=== PATIENT | male | born 1965 | race Caucasian/White ===

== ENCOUNTER → 2023-01-13 | Outpatient (CLI) | payer MEDICARE, OTHER ==
--- NOTE | 2023-01-13 09:46 | CT ---
EXAMINATION TYPE: CT brain wo con DATE OF EXAM: 01/13/2023 COMPARISON: none HISTORY: pounding headache, h/o traumatic brain, injury CT DLP: [address] of the brain was performed. There is extensive left temporal parietal craniotomy with skin flap in place. There is ex vacuo dilat ation of the left lateral ventricle as well as frontal horn and left ventricular atrium with encephal omalacia seen of the adjacent left frontal and left temporal parietal lobes. There is mild enlargemen t of the right lateral ventricle. There is no evidence of midline shift or intracranial hemorrhage. R emote white matter insults noted. No evidence for sulcal effacement. IMPRESSION: 1. Extensive postoperative changes as noted above left temporal parietal craniotomy. Encephalomalacia left frontal and left temporal parietal lobes with ex vacuo dilatation as discussed. No acute intrac ranial process seen at this time.
== END | disposition home or self-care (01) ==
LOC: RADCTMAIN 09:18
PROVIDERS: ATTEND Family Medicine
DX: Z00.01 Encounter for general adult medical examination with abnormal findings (principal); G93.89 Other specified disorders of brain; E11.9 Type 2 diabetes mellitus without complications; I51.7 Cardiomegaly; R51.9 Headache, unspecified; R19.5 Other fecal abnormalities; Z95.3 Presence of xenogenic heart valve; Z79.4 Long term (current) use of insulin
CPT/HCPCS: 70450

== ENCOUNTER 2024-06-20 10:01 | Observation (INO) | payer MEDICARE, OTHER ==
[2024-06-20 10:20] LABS: Glucose,Whole Blood 72 mg/dL (70-110)
--- NOTE | 2024-06-20 10:21 | ED ---
General Adult HPI - General Chief complaint: Seizure Stated complaint: seizure Time Seen by Provider: 06/20/24 10:06 Source: patient, RN notes reviewed Mode of arrival: ambulatory Limitations: no limitations - History of Present Illness Initial comments: Patient is a 59-year-old male presents emergency department with concerns for seizure. Patient is somewhat a poor historian and has history of previous head injury. Patient had reported seizure activity lasting 1 minute. Patient reportedly returned to baseline following this. Patient has no complaints at this time. No history of previous seizures. Head injury is a distant injury and has chronic right-sided weakness which is also reported as unchanged - Related Data Home Medications Medication Instructions Recorded Confirmed Ascorbic Acid [Vitamin C] 1,000 mg PO DAILY@0800 06/20/24 06/20/24 Cetirizine HCl [Zyrtec] 10 mg PO DAILY@1700 06/20/24 06/20/24 Cholecalciferol [Vitamin D3 (125 125 mcg PO DAILY@0800 06/20/24 06/20/24 Mcg = 5000 Iu)] Cider Vinegar [Apple Cider Vinegar] 600 mg PO BID@1130,1630 06/20/24 06/20/24 Cyanocobalamin (Vitamin B-12) 1,000 mcg PO DAILY@0800 06/20/24 06/20/24 [Vitamin B-12] Insulin Glargine,Hum.rec.anlog 15 units SQ BID@08,20 06/20/24 06/20/24 [Toujeo Solostar] Insulin Lispro-Aabc [Lyumjev See Protocol SQ AC-TID 06/20/24 06/20/24 Hao U-100] Ipratropium [place] 0.06%Nasal 2 spray EA NOSTRIL 06/20/24 06/20/24 [Atrovent Nasal 0.06%] TID@0800,1400,2000 Levothyroxine Sodium [Synthroid] 25 mcg PO DAILY@0800 06/20/24 06/20/24 Propranolol [Inderal] 20 mg PO TID@08,12,17 06/20/24 06/20/24 Rosuvastatin [Crestor] 10 mg PO DAILY@0800 06/20/24 06/20/24 Semaglutide [Ozempic] 0.5 mg SQ FR 06/20/24 06/20/24 Sertraline [Zoloft] 50 mg PO DAILY@0800 06/20/24 06/20/24 Zinc Gluconate [Zinc] 50 mg PO DAILY@0800 06/20/24 06/20/24 metFORMIN HCL ER [Glucophage XR] 1,000 mg PO DAILY@1700 06/20/24 06/20/24 Allergies Allergy/AdvReac Type Severity Reaction Status Date / Time No Known Allergies Allergy Verified 06/20/24 10:35 Review of Systems ROS Statement: Those systems with pertinent positive or pertinent negative responses have been documented in the HPI. ROS Other: All systems not noted in ROS Statement are negative. Constitutional: Denies: fever Eyes: Denies: eye pain ENT: Denies: ear pain Respiratory: Denies: cough Cardiovascular: Denies: chest pain Endocrine: Denies: fatigue Gastrointestinal: Denies: abdominal pain Neurological: Reports: as per HPI. Denies: headache, weakness Past Medical History Past Medical History: CVA/TIA, Diabetes Mellitus, Hyperlipidemia, Hypertension Additional Past Medical History / Comment(s): TBI, CKD , R Paralysis History of Any Multi-Drug Resistant Organisms: None Reported Past Surgical History: Unable to Obtain Past Psychological History: Anxiety Smoking Status: Former smoker Past Alcohol Use History: None Reported Past Drug Use History: None Reported General Exam Limitations: no limitations General appearance: alert Head exam: Present: other (Chronic appearing deformity) Eye exam: Present: normal appearance, PERRL, EOMI Neck exam: Present: normal inspection. Absent: tenderness Respiratory exam: Present: normal lung sounds bilaterally Cardiovascular Exam: Present: regular rate, normal rhythm GI/Abdominal exam: Present: soft. Absent: tenderness Extremities exam: Present: other (Right arm partially contracted) Back exam: Present: normal inspection. Absent: tenderness Neurological exam: Present: alert Expanded Neurological exam: Present: protecting the airway Patient oriented to: Present: person. Absent: place, time Motor strength exam: RUE: 3, LUE: 5, RLE: 5, LLE: 5 Eye Response: (4) open spontaneously Motor Response: (6) obeys commands Verbal Response: (4) confused conversation Psychiatric exam: Present: normal affect, normal mood Skin exam: Present: normal color Course Vital Signs 06/20/24 06/20/24 06/20/24 10:04 10:38 11:00 Temperature 97.8 F Pulse Rate 89 84 86 Respiratory 20 18 20 Rate Blood Pressure 156/104 140/108 145/96 O2 Sat by Pulse 96 97 96 Oximetry EKG Findings - EKG Results: EKG: interpreted by SHANNOND, sinus rhythm, normal axis, normal QRS, normal ST/T Medical Decision Making - Medical Decision Making Was pt. sent in by a medical professional or institution (, PA, COMMERCIAL REAL ESTATE SALES MANAGER, urgent care, hospital, or longterm...) When possible be specific @ -Patient was sent from an [facility] home Did you speak to anyone other than the patient for history (EMS, parent, family, police, friend...)? What history was obtained from this source @ -EMS helps provide history of the incident as patient does not recall Did you review nursing and triage notes (agree or disagree)? Why? @ -I reviewed and agree with nursing and triage notes Were old charts reviewed (outside hosp., previous admission, EMS record, old EKG, old radiological studies, urgent care reports/EKG's, longterm records)? Report findings @ -No old charts were reviewed Differential Diagnosis (chest pain, altered mental status, abdominal pain women, abdominal pain men, vaginal bleeding, weakness, fever, dyspnea, syncope, headache, dizziness, GI bleed, back pain, seizure, CVA, palpatations, mental health, musculoskeletal)? @ -Differential Seizure: Recurrent seizure disorder, febrile seizure, alcohol withdrawal, stimulants, meningitis, encephalitis, intercranial hemorrhage, intracranial tumor, stroke, eclampsia, thyrotoxicosis, hypocalcemia, hyponatremia, hypernatremia, hypomagnesemia, psychogenic, this is not meant to be an all-inclusive list. EKG interpreted by me (3pts min.). @ -As above X-rays interpreted by me (1pt min.). @ -None done CT interpreted by me (1pt min.). @ -CT scan of the brain shows no acute abnormality. Previous craniectomy and encephalomalacia U/S interpreted by me (1pt. min.). @ -None done What testing was considered but not performed or refused? (CT, X-rays, U/S, labs)? Why? @ -None What meds were considered but not given or refused? Why? @ -None Did you discuss the management of the patient with other professionals (professionals i.e. , PA, COMMERCIAL REAL ESTATE SALES MANAGER, lab, RT, psych nurse, social work assistant, laborer rags, teacher, environmental technical officer, skilled nursing case manager)? Give summary @ -Case was discussed with Dr. Preciado who will admit covering Dr. Arechiga Was smoking cessation discussed for >3mins.? @ -No Was critical care preformed (if so, how long)? @ -No Were there social determinants of health that impacted care today? How? (Homelessness, low income, unemployed, alcoholism, drug addiction, t ransportation, low edu. Level, literacy, decrease access to med. care, shelter, rehab)? @ -No Was there de-escalation of care discussed even if they declined (Discuss DNR or withdrawal of care, Hospice)? DNR status @ -No What co-morbidities impacted this encounter? (DM, HTN, Smoking, COPD, CAD, Cance r, CVA, ARF, Chemo, Hep., AIDS, mental health diagnosis, sleep apnea, morbid obesity)? @ -History of head injury Was patient admitted / discharged? Hospital course, mention meds given and route, prescriptions, significant lab abnormalities, going to OR and other pertinent info. @ -Patient presents with new onset seizure. No new focal deficits on exam. Patient reevaluated and symptom-free. Patient will admit for new onset seizure with neuroevaluation, admission orders written. Undiagnosed new problem with uncertain prognosis? @ -No Drug Therapy requiring intensive monitoring for toxicity (Heparin, Nitro, Insulin, Cardizem)? @ -No Were any procedures done? @ -No Diagnosis/symptom? @ -New onset seizure Acute, or Chronic, or Acute on Chronic? @ -Acute Uncomplicated (without systemic symptoms) or Complicated (systemic symptoms)? @ -Complicated with previous head injury Side effects of treatment? @ -No Exacerbation, Progression, or Severe Exacerbation? @ -No Poses a threat to life or bodily function? How? (Chest pain, [place], [place], pneumonia, PE, COPD, DKA, ARF, appy, cholecystitis, CVA, Diverticulitis, Homicidal, Suicidal, threat to staff... and all critical care pts) @ -Threat to neurological function - Lab Data Result diagrams: 06/20/24 10:21 06/20/24 10:21 Lab Results 06/20/24 06/20/24 06/20/24 Range/Units 10:18 10:21 10:21 WBC 6.2 (3.8-10.6) k/uL RBC 4.74 (4.30-5.90) m/uL Hgb 12.7 L (13.0-17.5) gm/dL Hct 40.5 (39.0-53.0) % MCV 85.5 (80.0-100.0) fL MCH 26.8 (25.0-35.0) pg MCHC 31.3 (31.0-37.0) g/dL RDW 13.6 (11.5-15.5) % Plt Count 214 (150-450) k/uL MPV 8.8 Neutrophils % 58 % Lymphocytes % 17 % Monocytes % 9 % Eosinophils % 12 % Basophils % 1 % Neutrophils # 3.6 (1.3-7.7) k/uL Lymphocytes # 1.0 (1.0-4.8) k/uL Monocytes # 0.6 (0-1.0) k/uL Eosinophils # 0.8 H (0-0.7) k/uL Basophils # 0.1 (0-0.2) k/uL Sodium 140 (137-145) mmol/L Potassium 4.4 (3.5-5.1) mmol/L Chloride 105 (98-107) mmol/L Carbon Dioxide 31 H (22-30) mmol/L Anion Gap 4 mmol/L BUN 17 (9-20) mg/dL Creatinine 1.60 H (0.66-1.25) mg/dL Est GFR (CKD-EPI)AfAm 54 (>60 ml/min/1.73 sqM) Est GFR (CKD-EPI)NonAf 47 (>60 ml/min/1.73 sqM) Glucose 67 L (74-99) mg/dL POC Glucose (mg/dL) 72 (70-110) mg/dL POC Glu Optical Glass Inspector ID Letty Beck Calcium 9.2 (8.4-10.2) mg/dL Magnesium 1.9 (1.6-2.3) mg/dL Total Bilirubin 0.5 (0.2-1.3) mg/dL AST 30 (17-59) U/L ALT 34 (4-49) U/L Alkaline Phosphatase 87 (38-126) U/L Total Protein 7.0 (6.3-8.2) g/dL Albumin 4.2 (3.5-5.0) g/dL Serum Alcohol <10 mg/dL 06/20/24 Range/Units 11:26 WBC (3.8-10.6) k/uL RBC (4.30-5.90) m/uL Hgb (13.0-17.5) gm/dL Hct (39.0-53.0) % MCV (80.0-100.0) fL MCH (25.0-35.0) pg MCHC (31.0-37.0) g/dL RDW (11.5-15.5) % Plt Count (150-450) k/uL MPV Neutrophils % % Lymphocytes % % Monocytes % % Eosinophils % % Basophils % % Neutrophils # (1.3-7.7) k/uL Lymphocytes # (1.0-4.8) k/uL Monocytes # (0-1.0) k/uL Eosinophils # (0-0.7) k/uL Basophils # (0-0.2) k/uL Sodium (137-145) mmol/L Potassium (3.5-5.1) mmol/L Chloride (98-107) mmol/L Carbon Dioxide (22-30) mmol/L Anion Gap mmol/L BUN (9-20) mg/dL Creatinine (0.66-1.25) mg/dL Est GFR (CKD-EPI)AfAm (>60 ml/min/1.73 sqM) Est GFR (CKD-EPI)NonAf (>60 ml/min/1.73 sqM) Glucose (74-99) mg/dL POC Glucose (mg/dL) 126 H (70-110) mg/dL POC Glu Optical Glass Inspector ID Letty Beck Calcium (8.4-10.2) mg/dL Magnesium (1.6-2.3) mg/dL Total Bilirubin (0.2-1.3) mg/dL AST (17-59) U/L ALT (4-49) U/L Alkaline Phosphatase (38-126) U/L Total Protein (6.3-8.2) g/dL Albumin (3.5-5.0) g/dL Serum Alcohol mg/dL Disposition Clinical Impression: New onset seizure Disposition: ADMITTED IP TO THIS HOSP Instructions (If sedation given, give patient instructions): Seizure/Epilepsy Discharge Instructions & Follow-Up Is patient prescribed a controlled substance at d/c from ED?: No Referrals: Mele Navarro MD [Primary Care Provider] - 1-2 days Time of Disposition: 12:12
[2024-06-20] MEDS: levETIRAcetam IV 500 MG/5 ML VIAL IVP STA (10:28)
[2024-06-20 10:42] LABS: Basophils # (A) 0.1 k/uL (0-0.2); Basophils % (A) 1 %; Eosinophils # (A) 0.8 k/uL (0-0.7); Eosinophils % (A) 12 %; HCT 40.5 % (39.0-53.0); HGB 12.7 gm/dL (13.0-17.5); Lymphocytes % (A) 17 %; MCH 26.8 pg (25.0-35.0); MCHC 31.3 g/dL (31.0-37.0); MCV 85.5 fL (80.0-100.0); Mean Platelet Volume 8.8; Monocytes # (A) 0.6 k/uL (0-1.0); Monocytes % (A) 9 %; Neutrophils # (A) 3.6 k/uL (1.3-7.7); Neutrophils % (A) 58 %; Platelet Count 214 k/uL (150-450); RBC 4.74 m/uL (4.30-5.90); RDW 13.6 % (11.5-15.5); WBC 6.2 k/uL (3.8-10.6)
[2024-06-20 10:57] LABS: ALT 34 U/L (4-49); AST 30 U/L (17-59); African American GFR (CKD) 54 (>60 ml/min/1.73 sqM); Albumin 4.2 g/dL (3.5-5.0); Alcohol <10 mg/dL; Alkaline Phosphatase 87 U/L (38-126); Anion Gap 4 mmol/L; Blood Urea Nitrogen 17 mg/dL (9-20); Calcium 9.2 mg/dL (8.4-10.2); Carbon Dioxide 31 mmol/L (22-30); Chloride 105 mmol/L (98-107); Glucose 67 mg/dL (74-99); Magnesium 1.9 mg/dL (1.6-2.3); Non-African American GFR(CKD) 47 (>60 ml/min/1.73 sqM); Potassium 4.4 mmol/L (3.5-5.1); Sodium 140 mmol/L (137-145); Total Bilirubin 0.5 mg/dL (0.2-1.3)
--- NOTE | 2024-06-20 11:00 | CT ---
EXAMINATION TYPE: CT brain wo con DATE OF EXAM: 06/20/2024 COMPARISON: 01/13/2023 HISTORY: 59-year-old male Seizure activity TECHNIQUE: Examination was done in axial plane without intravenous contrast. Coronal and sagittal r econstructions performed. CT DLP: 1095.5 mGycm Automated exposure control for dose reduction was used. FINDINGS: There is a large craniectomy along the left lateral convexity with extensive underlying encephalomala khloe throughout the left cerebrum. Mild ventriculomegaly is unchanged. No midline shift or herniation or effacement of basal subarachnoi d cisterns. Subjective catheters along the right scalp can be correlated clinically. There is no evidence of acute intracranial hemorrhage, acute ischemic changes, mass, mass-effect, or extra-axial fluid collection. There is no effacement of cerebral sulci or basal subarachnoid cister ns. There is no midline shift. Leon-white matter distinction is preserved. Trace mucosal thickening ethmoid air cells. Otherwise, paranasal sinuses and mastoid air cells are we ll pneumatized. Cerumen in bilateral external auditory canals. Orbits and globes appear intact. IMPRESSION: 1. Large craniectomy along the left side of the head redemonstrated with extensive underlying encepha lomalacia throughout the left side of the brain. Overall appearance is unchanged. 2. Mild bilateral hydrocephalus/ventriculomegaly also remains unchanged. No acute process seen. 4. Some type of catheters redemonstrated within the right scalp. Clinically correlate. [facility], , 06/20/2024 10:57 AM
[2024-06-20 11:28] LABS: Glucose,Whole Blood 126 mg/dL (70-110)
[2024-06-20] MEDS ORDERED: ACETAMINOPHEN TAB 325 MG TAB PO PRN (12:12)
[2024-06-20] MEDS ORDERED: NALOXONE 0.4 MG/ML 1 ML VIAL IV PRN (12:12)
[2024-06-20] MEDS ORDERED: LORazepam 2 MG/ML INJ IV PRN (12:14)
[2024-06-20] MEDS: IPRATROPIUM BROMIDE 0.06% NASAL SPRAY (15 ML) EA NOSTRIL SCH (14:47)
[2024-06-20] MEDS ORDERED: DEXTROSE 50% SYRINGE 50 ML IVP PRN ×2 (15:05)
--- NOTE | 2024-06-20 15:05 | P.HPIM ---
History of Present Illness H&P Date: 06/20/24 Patient is a 59-year-old male with a history of TBI 15 years ago, no prior seizure disorder presenting with seizure. Patient is extremely dysarthric, unable to provide meaningful history. He claims that he is normally able to ambulate on his own, lives by himself, but his family witnessed the seizure and called EMS. He claims that he is not able to move his right upper extremity due to prior TBI, but denies any new symptoms. He denies any chest pain, shortness of breath, abdominal pain, urinary or bowel complaints. He claims that he is a former smoker, occasionally drinks alcohol, denies any illicit drug use. In the ED, temperature was 97.8, pulse 89, respiratory 20, blood pressure 156/104, saturating at 96% on room air. WBC 6.2, hemoglobin 12.7, bicarb 31, creatinine 1.6 unknown baseline, glucose 67, magnesium 1.9, alcohol negative. Head CT shows large craniectomy, extensive underlying encephalomalacia on the left side, mild bilateral hydrocephalus, unchanged, nothing acute. EKG independently interpreted, shows normal sinus rhythm. Patient being admitted for new breakthrough seizure with history of TBI. Neurology consulted. Pertinent positives and negatives as discussed in HPI, a complete review of systems was performed and all other systems are negative. Patient seen and examined at bedside. Vital signs reviewed General: nontoxic, no distress, appears at stated age Derm: warm, dry Head: Left cranial surgery Eyes: EOMI, no lid lag, anicteric sclera, pupils equal round reactive to light ENT: Nose and ears atraumatic Neck: No thyromegaly, supple Mouth: no lip lesion, mucus membranes moist Cardiovascular: S1S2 reg, no murmur, no edema Lungs: clear to auscultation bilateral, no rhonchi, no rales, no wheeze, no accessory muscle use Abdominal: soft, nontender to palpation, no guarding, no appreciable organomegaly Ext: Right upper extremity paralysis Neuro: CN II-XII grossly intact Psych: Alert, oriented, appropriate affect Assessment/Plan: Active: Breakthrough seizure History of TBI -Seizure precautions, neurochecks -Continue Keppra oral 500 every 12 hours -IV Ativan 1 mg every 4 hours as needed for seizures, monitor for sedation -Neurology consulted, pending recommendations Type 2 diabetes -Sliding scale insulin ACH S, monitor for hypoglycemia -Continue 15 units glargine twice daily -Hold metformin CKD? -Repeat BMP tomorrow Chronic: Dyslipidemia Hypothyroidism Hypertension Depression The patient is admitted with an anticipated less than 2 midnight stay as observation status for evaluation of seizure. Surrogate decision-maker: Spouse CODE STATUS: Full code DVT prophylaxis: Subcu heparin Anticipated discharge date: Pending clinical course Anticipated discharge place: Pending clinical course A total of 55 minutes was spent on the care of this complex patient more than 50% of the time was spent in counseling and care coordination. Past Medical History Past Medical History: CVA/TIA, Diabetes Mellitus, Hyperlipidemia, Hypertension Additional Past Medical History / Comment(s): TBI, CKD , R Paralysis History of Any Multi-Drug Resistant Organisms: None Reported Past Surgical History: Unable to Obtain Past Psychological History: Anxiety Smoking Status: Former smoker Past Alcohol Use History: None Reported Past Drug Use History: None Reported Medications and Allergies Home Medications Medication Instructions Recorded Confirmed Type Ascorbic Acid [Vitamin C] 1,000 mg PO DAILY@0800 06/20/24 06/20/24 History Cetirizine HCl [Zyrtec] 10 mg PO DAILY@1700 06/20/24 06/20/24 History Cholecalciferol [Vitamin D3 (125 125 mcg PO DAILY@0800 06/20/24 06/20/24 History Mcg = 5000 Iu)] Cider Vinegar [Apple Cider Vinegar] 600 mg PO BID@1130,1630 06/20/24 06/20/24 History Cyanocobalamin (Vitamin B-12) 1,000 mcg PO DAILY@0800 06/20/24 06/20/24 History [Vitamin B-12] Insulin Glargine,Hum.rec.anlog 15 units SQ BID@08,20 06/20/24 06/20/24 History [Toujacklyn Solostar] Insulin Lispro-Aabc [Lyumjev See Protocol SQ AC-TID 06/20/24 06/20/24 History Kwikpen U-100] Ipratropium [place] 0.06%Nasal 2 spray EA NOSTRIL 06/20/24 06/20/24 History [Atrovent Nasal 0.06%] TID@0800,1400,2000 Levothyroxine Sodium [Synthroid] 25 mcg PO DAILY@0800 06/20/24 06/20/24 History Propranolol [Inderal] 20 mg PO TID@08,12,17 06/20/24 06/20/24 History Rosuvastatin [Crestor] 10 mg PO DAILY@0800 06/20/24 06/20/24 History Semaglutide [Ozempic] 0.5 mg SQ FR 06/20/24 06/20/24 History Sertraline [Zoloft] 50 mg PO DAILY@0800 06/20/24 06/20/24 History Zinc Gluconate [Zinc] 50 mg PO DAILY@0800 06/20/24 06/20/24 History metFORMIN HCL ER [Glucophage XR] 1,000 mg PO DAILY@1700 06/20/24 06/20/24 History Allergies Allergy/AdvReac Type Severity Reaction Status Date / Time No Known Allergies Allergy Verified 06/20/24 10:35 Physical Exam Vitals: Vital Signs Temp Pulse Resp BP Pulse Ox 06/20/24 14:00 75 18 133/96 96 06/20/24 13:00 80 18 144/87 96 06/20/24 12:15 85 18 121/90 94 L 06/20/24 11:00 86 20 145/96 96 06/20/24 10:38 84 18 140/108 97 06/20/24 10:04 97.8 F 89 20 156/104 96 Intake and Output 06/20/24 06/20/24 06/20/24 06:59 14:59 22:59 Other: Weight 68.039 kg Results CBC & Chem 7: 06/20/24 10:21 06/20/24 10:21 Labs: Abnormal Lab Results - Last 24 Hours (Table) 06/20/24 06/20/24 06/20/24 Range/Units 10:21 10:21 11:26 Hgb 12.7 L (13.0-17.5) gm/dL Eosinophils # 0.8 H (0-0.7) k/uL Carbon Dioxide 31 H (22-30) mmol/L Creatinine 1.60 H (0.66-1.25) mg/dL Glucose 67 L (74-99) mg/dL POC Glucose (mg/dL) 126 H (70-110) mg/dL
[2024-06-20] MEDS ORDERED: NON FORMULARY DRUG (Cider Vinegar [Apple Cider Vinegar] 300 MG Tablet) PO SCH (16:30)
[2024-06-20] MEDS ORDERED: metFORMIN 500 MG TAB PO SCH (17:00)
[2024-06-20 17:13] LABS: Glucose,Whole Blood 111 mg/dL (70-110)
[2024-06-20] MEDS: HEPARIN SODIUM,PORCINE 5,000 UNIT/ML 1 ML VIAL SQ SCH (17:13)
[2024-06-20] MEDS: LORATADINE 10 MG TAB PO SCH (17:13)
[2024-06-20] MEDS: INSULIN ASPART (NovoLOG) 100 UNIT/ML VIAL SQ SCH (17:13)
[2024-06-20] MEDS: PROPRANOLOL 20 MG TAB PO SCH (17:24)
[2024-06-20 20:04] LABS: Glucose,Whole Blood 208 mg/dL (70-110)
[2024-06-20] MEDS: levETIRAcetam 500 MG TAB PO SCH (20:10)
[2024-06-20] MEDS: INSULIN DETEMIR (LEVEMIR) 100 UNIT/ML SYR SQ SCH (20:10)
[2024-06-21 07:02] LABS: Basophils # (A) 0.1 k/uL (0-0.2); Basophils % (A) 1 %; Eosinophils # (A) 0.2 k/uL (0-0.7); Eosinophils % (A) 3 %; HCT 41.1 % (39.0-53.0); HGB 12.8 gm/dL (13.0-17.5); Lymphocytes # (A) 0.8 k/uL (1.0-4.8); Lymphocytes % (A) 11 %; MCH 26.8 pg (25.0-35.0); MCV 86.2 fL (80.0-100.0); Mean Platelet Volume 8.5; Monocytes # (A) 0.5 k/uL (0-1.0); Monocytes % (A) 6 %; Neutrophils # (A) 6.1 k/uL (1.3-7.7); Neutrophils % (A) 78 %; Platelet Count 215 k/uL (150-450); RBC 4.77 m/uL (4.30-5.90); RDW 13.6 % (11.5-15.5); WBC 7.8 k/uL (3.8-10.6)
[2024-06-21 07:22] LABS: African American GFR (CKD) 62 (>60 ml/min/1.73 sqM); Anion Gap 8 mmol/L; Blood Urea Nitrogen 18 mg/dL (9-20); Calcium 9.2 mg/dL (8.4-10.2); Carbon Dioxide 28 mmol/L (22-30); Chloride 103 mmol/L (98-107); Non-African American GFR(CKD) 54 (>60 ml/min/1.73 sqM); Potassium 4.2 mmol/L (3.5-5.1); Sodium 139 mmol/L (137-145)
[2024-06-21 07:26] LABS: Glucose 39 mg/dL (74-99)
[2024-06-21 07:43] LABS: Glucose,Whole Blood 59 mg/dL (70-110)
[2024-06-21] MEDS: ZINC SULFATE 220 MG CAP PO SCH (07:53)
[2024-06-21] MEDS: SERTRALINE 50 MG TAB PO SCH (07:54)
[2024-06-21] MEDS: ATORVASTATIN 20 MG TAB PO SCH (07:54)
[2024-06-21] MEDS: ASCORBIC ACID 500 MG TAB PO SCH (07:54)
[2024-06-21] MEDS: LEVOTHYROXINE 25 MCG TAB PO SCH (07:55)
[2024-06-21] MEDS: CYANOCOBALAMIN 500 MCG TAB PO SCH (07:55)
[2024-06-21] MEDS: CHOLECALCIFEROL 125 MCG (5000 IU) TABLET PO SCH (07:56)
[2024-06-21 12:24] LABS: Glucose,Whole Blood 260 mg/dL (70-110)
--- NOTE | 2024-06-21 14:36 | P.PN ---
Subjective Progress Note Date: 06/21/24 Hospital Course: 59-year-old male with a history of TBI 15 years ago, no prior seizure disorder presenting with seizure. In the ED, temperature was 97.8, pulse 89, respiratory 20, blood pressure 156/104, saturating at 96% on room air. WBC 6.2, hemoglobin 12.7, bicarb 31, creatinine 1.6 unknown baseline, glucose 67, magnesium 1.9, alcohol negative. Head CT shows large craniectomy, extensive underlying encephalomalacia on the left side, mild bilateral hydrocephalus, unchanged, nothing acute. EKG independently interpreted, shows normal sinus rhythm. Patient being admitted for new breakthrough seizure with history of TBI. Neurology consulted. Subjective: Patient seen and examined at bedside. No acute events overnight. Pertinent positives and negatives as discussed above, a complete review of systems was performed and all other systems are negative. Vitals Signs Reviewed. General: nontoxic, no distress, appears at stated age Derm: warm, dry Head: Left cranial surgery Eyes: EOMI, no lid lag, anicteric sclera, pupils equal round reactive to light ENT: Nose and ears atraumatic Neck: No thyromegaly, supple Mouth: no lip lesion, mucus membranes moist Cardiovascular: S1S2 reg, no murmur, no edema Lungs: clear to auscultation bilateral, no rhonchi, no rales, no wheeze, no accessory muscle use Abdominal: soft, nontender to palpation, no guarding, no appreciable organome natanael Ext: Right upper extremity paralysis Neuro: CN II-XII grossly intact Psych: Alert, oriented, appropriate affect Data Reviewed Today: Pertinent Labs: WBC 7.8, hemoglobin 12.8, potassium 4.2, creatinine 1.43, glucose range between 39-2 60, A1c 7.4 Imaging: No new imaging Assessment and Plan: Active: Breakthrough seizure History of TBI, left craniectomy -Seizure precautions, neurochecks -Continue Keppra oral 500 every 12 hours -IV Ativan 1 mg every 4 hours as needed for seizures, monitor for sedation -Neurology consulted, pending recommendations Type 2 diabetes Episode of hypoglycemia -Sliding scale insulin ACH S, monitor for hypoglycemia -Decrease Levemir to 5 units nightly -Hold metformin PEREZ on CKD? -Repeat BMP tomorrow -Making adequate urine -Renal function improving Chronic: Dyslipidemia Hypothyroidism Hypertension Depression DVT ppx: Subcu heparin Code status: Full code Anticipated discharge place: Pending clinical course Anticipated discharge time: Pending clinical course Objective - Vital Signs Vital signs: Vital Signs Temp 98.2 F 06/21/24 00:00 Pulse 93 06/21/24 12:30 Resp 22 06/21/24 12:30 BP 140/93 06/21/24 12:30 Pulse Ox 97 06/21/24 12:30 FiO2 Intake & Output 06/20/24 06/21/24 06/21/24 18:59 06:59 18:59 Output Total 550 Balance -550 Weight 68.039 kg Output: Urine 550 Other: Voiding Method Urinal - Labs CBC & Chem 7: 06/21/24 06:13 06/21/24 06:13 Labs: Abnormal Lab Results - Last 24 Hours (Table) 06/20/24 06/20/24 06/21/24 Range/Units 17:12 20:03 06:13 Hgb (13.0-17.5) gm/dL Lymphocytes # (1.0-4.8) k/uL Creatinine (0.66-1.25) mg/dL Glucose (74-99) mg/dL POC Glucose (mg/dL) 111 H 208 H (70-110) mg/dL Hemoglobin A1c 7.4 H (<=6.0) % 06/21/24 06/21/24 06/21/24 Range/Units 06:13 06:13 07:42 Hgb 12.8 L (13.0-17.5) gm/dL Lymphocytes # 0.8 L (1.0-4.8) k/uL Creatinine 1.43 H (0.66-1.25) mg/dL Glucose 39 L* (74-99) mg/dL POC Glucose (mg/dL) 59 L (70-110) mg/dL Hemoglobin A1c (<=6.0) % 06/21/24 Range/Units 12:21 Hgb (13.0-17.5) gm/dL Lymphocytes # (1.0-4.8) k/uL Creatinine (0.66-1.25) mg/dL Glucose (74-99) mg/dL POC Glucose (mg/dL) 260 H (70-110) mg/dL Hemoglobin A1c (<=6.0) %
[2024-06-21 17:57] LABS: Glucose,Whole Blood 439 mg/dL (70-110)
[2024-06-21 19:47] VITALS: RESP 16
[2024-06-21 21:25] LABS: Glucose,Whole Blood 505 mg/dL (70-110)
[2024-06-21] MEDS: INSULIN DETEMIR (LEVEMIR) 100 UNIT/ML SYR SQ SCH (21:34)
[2024-06-22 00:16] LABS: Glucose,Whole Blood 70 mg/dL (70-110)
[2024-06-22 06:20] LABS: Glucose,Whole Blood 73 mg/dL (70-110)
[2024-06-22 07:59] LABS: African American GFR (CKD) 57 (>60 ml/min/1.73 sqM); Anion Gap 8 mmol/L; Blood Urea Nitrogen 25 mg/dL (9-20); Calcium 8.9 mg/dL (8.4-10.2); Carbon Dioxide 27 mmol/L (22-30); Chloride 104 mmol/L (98-107); Glucose 63 mg/dL (74-99); Non-African American GFR(CKD) 49 (>60 ml/min/1.73 sqM); Potassium 4.4 mmol/L (3.5-5.1); Sodium 139 mmol/L (137-145)
--- NOTE | 2024-06-22 08:08 | P.CNNES ---
History of Present Illness Consult date: 06/21/24 Requesting physician: Orlin Reddy Reason for Consult: New onset seizure History of Present Illness: Patient is a 59-year-old male with history of traumatic brain injury, left-sided craniectomy with subsequent expressive aphasia, who came to the hospital by ambulance yesterday at 10:01 AM for new onset seizure. Patient not able to provide history. As per EMS flowsheet when they arrived with chief complaints of generalized seizure. Per caregivers, patient had breakfast then went back into his bedroom. They heard a noise so they went to check on him and found him laying in his bed having a seizure. Per caregivers, the seizure lasted only about 1 minute. There was no incontinence, no trauma associated with the seizure. Patient was tired however he did not have any other obvious postictal.. Per caregivers, patient sustained a closed head injury from a fall about 15 years ago, that left him with right-sided arm paralysis and weakness of the right leg. Patient also has significant deformity left side of his head from previous TBI. Portion of his skull and brain was removed. Patient has resulting speech impairment and is only alert and orient x 2. Patient has answers yes and no questions. He also can answer questions with numerical answers using his hands. Patient has expressive aphasia from the TBI. Patient was able to ambulate to the stretcher with no new difficulties. Patient was very cooperative. His blood sugar was initially 67 mg/dL. Patient's vitals at the scene was blood pressure 149/102, pulse rate 91 respiration 16 saturation 98%. Repeat blood sugar 97. Blood test shows normal CBC, basic metabolic panel. Glucose was 39. Hemoglobin A1c 7.4. EKG showed sinus rhythm. CT head revealed large craniectomy along the left side of the head redemonstrated with extensive underlying encephalomalacia throughout the left side of the brain. Overall appearance is unchanged. Mild bilateral hydrocephalus/ventriculomegaly also remains unchanged. No acute process. Home medications include Crestor, metformin, insulin, B12, sertraline 50 mg, Ozempic, propranolol 20 mg 3 times daily, levothyroxine, zinc. Patient not on any seizure medications. Patient was started on Keppra with initial loading dose of 1000 mg IV push, and started on 500 mg twice daily. Patient was not on any antiepileptic medication in the past. No further seizures have reported. Review of Systems Patient denies any headache or dizziness. Other pertinent positive and negatives mentioned in the HPI. ROS unobtainable: due to mental status Past Medical History Past Medical History: CVA/TIA, Diabetes Mellitus, Hyperlipidemia, Hypertension Additional Past Medical History / Comment(s): TBI, CKD , R Paralysis History of Any Multi-Drug Resistant Organisms: None Reported Past Surgical History: Unable to Obtain Past Psychological History: Anxiety Smoking Status: Former smoker Past Alcohol Use History: None Reported Past Drug Use History: None Reported - Past Family History Father History Unknown: Yes Mother History Unknown: Yes Medications and Allergies Home Medications Medication Instructions Recorded Confirmed Type Ascorbic Acid [Vitamin C] 1,000 mg PO DAILY@0800 06/20/24 06/20/24 History Cetirizine HCl [Zyrtec] 10 mg PO DAILY@1700 06/20/24 06/20/24 History Cholecalciferol [Vitamin D3 (125 125 mcg PO DAILY@0800 06/20/24 06/20/24 History Mcg = 5000 Iu)] Cider Vinegar [Apple Cider Vinegar] 600 mg PO BID@1130,1630 06/20/24 06/20/24 History Cyanocobalamin (Vitamin B-12) 1,000 mcg PO DAILY@0800 06/20/24 06/20/24 History [Vitamin B-12] Insulin Glargine,Hum.rec.anlog 15 units SQ BID@08,20 06/20/24 06/20/24 History [Toujacklyn Solostar] Insulin Lispro-Aabc [Lyumjev See Protocol SQ AC-TID 06/20/24 06/20/24 History Kwikpen U-100] Ipratropium [place] 0.06%Nasal 2 spray EA NOSTRIL 06/20/24 06/20/24 History [Atrovent Nasal 0.06%] TID@0800,1400,2000 Levothyroxine Sodium [Synthroid] 25 mcg PO DAILY@0800 06/20/24 06/20/24 History Propranolol [Inderal] 20 mg PO TID@08,12,17 06/20/24 06/20/24 History Rosuvastatin [Crestor] 10 mg PO DAILY@0800 06/20/24 06/20/24 History Semaglutide [Ozempic] 0.5 mg SQ FR 06/20/24 06/20/24 History Sertraline [Zoloft] 50 mg PO DAILY@0800 06/20/24 06/20/24 History Zinc Gluconate [Zinc] 50 mg PO DAILY@0800 06/20/24 06/20/24 History metFORMIN HCL ER [Glucophage XR] 1,000 mg PO DAILY@1700 06/20/24 06/20/24 History Allergies Allergy/AdvReac Type Severity Reaction Status Date / Time No Known Allergies Allergy Verified 06/20/24 10:35 Physical Examination - Vital Signs Vital Signs: Vital Signs Temp Pulse Pulse Resp BP BP Pulse Ox 06/21/24 19:46 61 16 155/93 97 06/21/24 18:00 80 20 145/98 98 06/21/24 12:30 93 22 140/93 97 06/21/24 09:05 96 06/21/24 07:30 93 22 146/102 96 06/21/24 04:00 81 14 139/91 95 06/21/24 00:00 98.2 F 83 16 144/97 96 06/20/24 20:00 98 F 79 15 127/98 95 Intake and Output 06/21/24 06/21/24 06/21/24 06:59 14:59 22:59 Output Total 350 Balance -350 Output: Urine 350 Other: Voiding Method Urinal Patient is a middle aged male, very pleasant, in no acute distress. Patient has obvious cranial defect on the left parietal region from previous craniectomy. Patient is alert awake. Patient knows his name and age 55 years. He has significant expressive aphasia. He has significant paraphasic errors. For eyeglasses, patient sees "surgery". For earlobe, patient states "ear" and then said "brain". He was able to name pen as pencil. He pointed to the helmet the players were wearing on the game on the TV. He cannot repeat at all. Attention, concentration is intact and fund of knowledge is very limited due to aphasia. On cranial nerve examination, pupils are equal, round and reacting to light, visual chavarria are difficult to assess because of his comprehension. Extraocular muscles are intact, although appears mild esotropia right eye. His gaze to the right appears slightly spastic. There is no nystagmus. Patient has right facial droop and his tongue protrudes to the right. Palatal elevation and sensation normal, hearing and shoulder shrug 3+ on the right normal on the left, facial sensation normal. On muscle strength testing, strength is normal in the left arm and both legs. In the right upper limb, bicep 0, triceps 0, lead loader 0, deltoid 53+. Deep tendon reflexes are symmetric diminished, plantars light. Sensory to touch is equal with no neglect on double simultaneous stimulation. Cerebellar function showed no ataxia for [id number] testing in the left side, cannot do on the right. No dysdiadochokinesia. No ataxia for heel-to-sh in testing on either side. Tone and bulk of muscles normal. Gait deferred.. On general examination, there is no carotid bruit or murmur, S1-S2 audible. Chest is clear on consultation. Abdomen is soft nontender. No organomegaly, bowel sounds present. Peripheral pulses are present. No peripheral edema. Results - Laboratory Findings CBC and BMP: 06/21/24 06:13 06/21/24 06:13 Abnormal Lab Findings: Abnormal Labs 06/20/24 06/20/24 06/20/24 10:21 10:21 11:26 Hgb 12.7 L Lymphocytes # Eosinophils # 0.8 H Carbon Dioxide 31 H Creatinine 1.60 H Glucose 67 L POC Glucose (mg/dL) 126 H Hemoglobin A1c 06/20/24 06/20/24 06/21/24 17:12 20:03 06:13 Hgb Lymphocytes # Eosinophils # Carbon Dioxide Creatinine Glucose POC Glucose (mg/dL) 111 H 208 H Hemoglobin A1c 7.4 H 06/21/24 06/21/24 06/21/24 06:13 06:13 07:42 Hgb 12.8 L Lymphocytes # 0.8 L Eosinophils # Carbon Dioxide Creatinine 1.43 H Glucose 39 L* POC Glucose (mg/dL) 59 L Hemoglobin A1c 06/21/24 06/21/24 12:21 17:54 Hgb Lymphocytes # Eosinophils # Carbon Dioxide Creatinine Glucose POC Glucose (mg/dL) 260 H 439 H Hemoglobin A1c Assessment and Plan Assessment: * New onset seizure, likely posttraumatic. * History of TBI 15 years ago, with left hemicraniectomy, with subsequent expressive aphasia and right hemiparesis. * Episodes of hypoglycemia. Patient's blood glucose at the scene was 64. Patient had an episode of hypoglycemia of 39 in the hospital. * Diabetes * Hyperlipidemia * Hypertension * Depression * Mild renal insufficiency Plan: * Agree with starting Keppra 500 mg twice daily. Patient tolerating medication well. * No need for EEG, as it will be severely limited because of his history of craniectomy. * Avoid episodes of hypoglycemia. * Neurologically clear for discharge. * Thank you for the consult.
[2024-06-22 10:32] VITALS: TEMP 98.6
[2024-06-22 11:31] LABS: Glucose,Whole Blood 263 mg/dL (70-110)
[2024-06-22 12:04] VITALS: BP 149/92; PULSE 77
--- NOTE | 2024-06-22 16:23 | P.DS ---
Providers Date of admission: 06/20/24 12:14 Expected date of discharge: 06/22/24 Attending physician: Woo Jurado Consults: 06/20/24 12:12 Consult Physician Routine Consulting Provider: Heather Cross Consult Reason/Comments: New onset seizure Do you want consulting provider notified?: Yes Primary care physician: [facility] Course: Hospital Course: 59-year-old male with a history of TBI 15 years ago, no prior seizure disorder presenting with seizure. In the ED, temperature was 97.8, pulse 89, respiratory 20, blood pressure 156/104, saturating at 96% on room air. WBC 6.2, hemoglobin 12.7, bicarb 31, creatinine 1.6 unknown baseline, glucose 67, magnesium 1.9, alcohol negative. Head CT shows large craniectomy, extensive underlying encephalomalacia on the left side, mild bilateral hydrocephalus, unchanged, nothing acute. EKG independently interpreted, shows normal sinus rhythm. Patient being admitted for new breakthrough seizure with history of TBI. Neurology consulted. June 22: Patient was cleared by neurology Dr. Sharif. Patient does follow-up with Dr. Vallejo. Even though patient has dysarthria is able to understand. Patient has chronic weakness in his right arm. Right leg is okay. Questions answered. On examination: VITAL SIGNS: [98.6, 77, 16, 149 x 92, 97% room air] GENERAL APPEARANCE: Up in a chair, comfortable HEENT: Left cranium piece of skull missing. With depressed area. EYES: Pupils equal. Conjunctiva normal. NECK: JVD not raised. Mass not palpable. RESPIRATORY: Respiratory effort normal. Lungs clear to auscultation. CARDIOVASCULAR: First and second sounds normal. No edema. ABDOMEN: Soft. Liver and spleen not palpable. No tenderness. No mass palpable. PSYCHIATRY: Alert and oriented x3. Mood and affect normal. NEUROLOGICAL: Right arm power 3/5. Dysarthric speech.-Misses words. Data Pertinent Labs: WBC 7.8, hemoglobin 12.8, potassium 4.2, creatinine 1.43, glucose range between 39-2 60, A1c 7.[address] brain: Large craniectomy along the left lateral convexity with extensive underlying encephalomalacia throughout the left cerebrum. Mild ventriculomegaly. Some type of catheter in the right skull. Assessment and Plan: -Acute new onset seizures likely posttraumatic Keppra. Seen by Dr. Cross from neurology. Follow-up with Dr. Vallejo outpatient. No automobile driving allowed -History of TBI, left craniectomy -Type 2 diabetes -Chronic kidney disease, stage III likely nephrosclerosis and diabetic nephropathy Dyslipidemia Hypothyroidism -Essential hypertension Depression Disposition: Home Plan - Discharge Summary Discharge Rx Participant: No New Discharge Prescriptions: New levETIRAcetam [Keppra] 500 mg PO Q12HR #60 tab Continue Ascorbic Acid [Vitamin C] 1,000 mg PO DAILY@0800 Rosuvastatin [Crestor] 10 mg PO DAILY@0800 metFORMIN HCL ER [Glucophage XR] 1,000 mg PO DAILY@1700 Cetirizine HCl [Zyrtec] 10 mg PO DAILY@1700 Insulin Glargine,Hum.rec.anlog [Amparo Solalfredo] 15 units SQ BID@08,20 Cyanocobalamin (Vitamin B-12) [Vitamin B-12] 1,000 mcg PO DAILY@0800 Cholecalciferol [Vitamin D3 (125 Mcg = 5000 Iu)] 125 mcg PO DAILY@0800 Sertraline [Zoloft] 50 mg PO DAILY@0800 Semaglutide [Ozempic] 0.5 mg SQ FR Propranolol [Inderal] 20 mg PO TID@08,, Insulin Lispro-Aabc [Lyumfrancis Gastonpen U-100] See Protocol SQ AC-TID Levothyroxine Sodium [Synthroid] 25 mcg PO DAILY@0800 Ipratropium [place] 0.06%Nasal [Atrovent Nasal 0.06%] 2 spray EA NOSTRIL TID@0800,1400,1999 Zinc Gluconate [Zinc] 50 mg PO DAILY@0800 No Action Cider Vinegar [Apple Cider Vinegar] 600 mg PO BID@1130,1630 Discharge Medication List Ascorbic Acid [Vitamin C] 1,000 mg PO DAILY@0800 06/20/24 [History] Cetirizine HCl [Zyrtec] 10 mg PO DAILY@1700 06/20/24 [History] Cholecalciferol [Vitamin D3 (125 Mcg = 5000 Iu)] 125 mcg PO DAILY@0800 06/20/24 [History] Cider Vinegar [Apple Cider Vinegar] 600 mg PO BID@1130,1630 06/20/24 [History] Cyanocobalamin (Vitamin B-12) [Vitamin B-12] 1,000 mcg PO DAILY@0800 06/20/24 [History] Insulin Glargine,Hum.rec.anlog [Amparo Walkerostmariusz] 15 units SQ BID@08,20 06/20/24 [History] Insulin Lispro-Aabc [Lyumrafaelav Marilinpen U-100] See Protocol SQ AC-TID 06/20/24 [History] Ipratropium [place] 0.06%Nasal [Atrovent Nasal 0.06%] 2 spray EA NOSTRIL TID@0800,1400,2000 06/20/24 [History] Levothyroxine Sodium [Synthroid] 25 mcg PO DAILY@0800 06/20/24 [History] Propranolol [Inderal] 20 mg PO TID@08,12,17 06/20/24 [History] Rosuvastatin [Crestor] 10 mg PO DAILY@0800 06/20/24 [History] Semaglutide [Ozempic] 0.5 mg SQ FR 06/20/24 [History] Sertraline [Zoloft] 50 mg PO DAILY@0800 06/20/24 [History] Zinc Gluconate [Zinc] 50 mg PO DAILY@0800 06/20/24 [History] metFORMIN HCL ER [Glucophage XR] 1,000 mg PO DAILY@1700 06/20/24 [History] levETIRAcetam [Keppra] 500 mg PO Q12HR #60 tab 06/22/24 [Rx] Follow up Appointment(s)/Referral(s): Mallory Vallejo MD [Medical Doctor] - 1 Week (left voicemail for office to call and set appointment) Mele Navarro MD [Primary Care Provider] - 06/25/24 (office will call patient with appointment time for FridayJun 25 on Jun 24 ) Patient Instructions/Handouts: Seizure/Epilepsy Discharge Instructions & Follow-Up Activity/Diet/Wound Care/Special Instructions: no automobile driving allowed Discharge Disposition: HOME WITH HOME HEALTH SERVICES
== END 2024-06-22 14:30 | disposition home health service (06) ==
LOC: EC 10:01 → 3SCARD 12:14
PROVIDERS: ADMIT Hospitalist; ATTEND Hospitalist
DX: R56.9 Unspecified convulsions (principal); S06.9XAS Unspecified intracranial injury with loss of consciousness status unknown, sequela; G81.91 Hemiplegia, unspecified affecting right dominant side; R47.01 Aphasia; G91.9 Hydrocephalus, unspecified; G93.89 Other specified disorders of brain; E78.5 Hyperlipidemia, unspecified; E03.9 Hypothyroidism, unspecified; I12.9 Hypertensive chronic kidney disease with stage 1 through stage 4 chronic kidney disease, or unspecified chronic kidney disease; E11.22 Type 2 diabetes mellitus with diabetic chronic kidney disease; E11.649 Type 2 diabetes mellitus with hypoglycemia without coma; N18.30 Chronic kidney disease, stage 3 unspecified; F32.A Depression, unspecified; F41.9 Anxiety disorder, unspecified; Z87.891 Personal history of nicotine dependence; Z79.890 Hormone replacement therapy; Z79.899 Other long term (current) drug therapy; Z79.84 Long term (current) use of oral hypoglycemic drugs; Z79.4 Long term (current) use of insulin; X58.XXXS Exposure to other specified factors, sequela; Z86.73 Personal history of transient ischemic attack (TIA), and cerebral infarction without residual deficits
CPT/HCPCS: 96372 ×3; 96374; 99285; 36415; 94760; 93005; 80053; 80048 ×2; 83735; 85025 ×2; 83036; 70450; G0378 ×3; G0480; J1644 ×3; J1953; 80320

== ENCOUNTER 2025-02-18 12:24 | Emergency (ER) | payer MEDICARE, OTHER ==
[2025-02-18 12:31] VITALS: BP 155/100; PULSE 68; RESP 18; TEMP 97.1
[2025-02-18 12:41] LABS: Glucose,Whole Blood 143 mg/dL (70-110)
--- NOTE | 2025-02-18 12:58 | ED ---
General Adult HPI - General Chief complaint: Recheck/Abnormal Lab/Rx Stated complaint: Low blood sugar Time Seen by Provider: 02/18/25 12:29 Source: patient, EMS, RN notes reviewed, old records reviewed Mode of arrival: EMS Limitations: altered mental status - History of Present Illness Initial comments: 59-year-old male presenting with hypoglycemia. Patient noted to be confused at the assisted living facility where he resides. Blood sugar was checked and it was reported as low. Apparently the patient had been given an amp of dextrose during transport by paramedics. At the time my evaluation blood sugar has normalized and the patient is alert and oriented without complaint. He states he is on insulin but is uncertain of the dosing. - Related Data Home Medications Medication Instructions Recorded Confirmed Ascorbic Acid [Vitamin C] 1,000 mg PO DAILY@0800 06/20/24 06/20/24 Cetirizine HCl [Zyrtec] 10 mg PO DAILY@1700 06/20/24 06/20/24 Cholecalciferol [Vitamin D3 (125 125 mcg PO DAILY@0800 06/20/24 06/20/24 Mcg = 5000 Iu)] Cider Vinegar [Apple Cider Vinegar] 600 mg PO BID@1130,1630 06/20/24 06/20/24 Cyanocobalamin (Vitamin B-12) 1,000 mcg PO DAILY@0800 06/20/24 06/20/24 [Vitamin B-12] Insulin Glargine,Hum.rec.anlog 15 units SQ BID@08,20 06/20/24 06/20/24 [Toujacklyn Solostar] Insulin Lispro-Aabc [Lyumjev See Protocol SQ AC-TID 06/20/24 06/20/24 Kwikpen U-100] Ipratropium [place] 0.06%Nasal 2 spray EA NOSTRIL 06/20/24 06/20/24 [Atrovent Nasal 0.06%] TID@0800,1400,2000 Levothyroxine Sodium [Synthroid] 25 mcg PO DAILY@0800 06/20/24 06/20/24 Propranolol [Inderal] 20 mg PO TID@08,12,17 06/20/24 06/20/24 Rosuvastatin [Crestor] 10 mg PO DAILY@0800 06/20/24 06/20/24 Semaglutide [Ozempic] 0.5 mg SQ FR 06/20/24 06/20/24 Sertraline [Zoloft] 50 mg PO DAILY@0800 06/20/24 06/20/24 Zinc Gluconate [Zinc] 50 mg PO DAILY@0800 06/20/24 06/20/24 metFORMIN HCL ER [Glucophage XR] 1,000 mg PO DAILY@1700 06/20/24 06/20/24 Previous Rx's Medication Instructions Recorded levETIRAcetam [Keppra] 500 mg PO Q12HR #60 tab 06/22/24 Allergies Allergy/AdvReac Type Severity Reaction Status Date / Time No Known Allergies Allergy Verified 06/20/24 10:35 Review of Systems ROS Statement: Those systems with pertinent positive or pertinent negative responses have been documented in the HPI. ROS Other: All systems not noted in ROS Statement are negative. Past Medical History Past Medical History: CVA/TIA, Diabetes Mellitus, Hyperlipidemia, Hypertension Additional Past Medical History / Comment(s): TBI, CKD , R Paralysis History of Any Multi-Drug Resistant Organisms: None Reported Past Surgical History: Unable to Obtain Additional Past Surgical History / Comment(s): surgery post TBI 15 years ago Past Anesthesia/Blood Transfusion Reactions: Unable to Obtain Past Psychological History: Anxiety Smoking Status: Former smoker Past Alcohol Use History: None Reported Past Drug Use History: None Reported - Past Family History Father History Unknown: Yes Mother History Unknown: Yes General Exam Limitations: altered mental status General appearance: alert, in no apparent distress Head exam: Present: atraumatic, normocephalic, other (Postsurgical changes remote) Eye exam: Present: normal appearance, PERRL ENT exam: Present: normal exam Neck exam: Present: normal inspection. Absent: tenderness, meningismus Respiratory exam: Present: normal lung sounds bilaterally. Absent: respiratory distress Cardiovascular Exam: Present: regular rate, normal rhythm GI/Abdominal exam: Present: soft. Absent: distended, tenderness, guarding Extremities exam: Present: normal inspection, normal capillary refill. Absent: pedal edema Neurological exam: Present: alert Skin exam: Present: warm, dry, intact Course Vital Signs 02/18/25 12:25 Temperature 97.1 F L Pulse Rate 68 Respiratory 18 Rate Blood Pressure 155/100 O2 Sat by Pulse 98 Oximetry Medical Decision Making - Medical Decision Making Was pt. sent in by a medical professional or institution (USHA Weaver, CERTIFIED PROFESSIONAL MIDWIFE, urgent care, hospital, or custodial...) When possible be specific @ -No Did you speak to anyone other than the patient for history (EMS, parent, family, police, friend...)? What history was obtained from this source @ -No Did you review nursing and triage notes (agree or disagree)? Why? @ -I reviewed and agree with nursing and triage notes Were old charts reviewed (outside hosp., previous admission, EMS record, old EKG, old radiological studies, urgent care reports/EKG's, custodial records)? Report findings @ -No old charts were reviewed Differential Altered Mental Status: Hypoglycemia, DKA, hypercapnia, ETOH, overdose, CO poisoning, trauma, myxedema coma, HTN encephalopathy, infection, encephalitis, psychosis, intercranial hemorrhage, hepatic encephalopathy, meningitis, CVA, this is not meant to be an all-inclusive list EKG interpreted by me (3pts min.). @ -As above X-rays interpreted by me (1pt min.). @ -None done CT interpreted by me (1pt min.). @ -None done U/S interpreted by me (1pt. min.). @ -None done What testing was considered but not performed or refused? (CT, X-rays, U/S, labs)? Why? @ -None What meds were considered but not given or refused? Why? @ -None Did you discuss the management of the patient with other professionals (hank berumen i.e. USHA Weaver, CERTIFIED PROFESSIONAL MIDWIFE, lab, RT, psych nurse, high school social science teacher, business lawyer, teacher, adult parole officer, senior case manager)? Give summary @ -No Was smoking cessation discussed for >3mins.? @ -No Was critical care preformed (if so, how long)? @ -No Were there social determinants of health that impacted care today? How? (Homelessness, low income, unemployed, alcoholism, drug addiction, transportation, low edu. Level, literacy, decrease access to med. care, long term, rehab)? @ -No Was there de-escalation of care discussed even if they declined (Discuss DNR or withdrawal of care, Hospice)? DNR status @ -No What co-morbidities impacted this encounter? (DM, HTN, Smoking, COPD, CAD, Cancer, CVA, ARF, Chemo, Hep., AIDS, mental health diagnosis, sleep apnea, morbid obesity)? @ -None Was patient admitted / discharged? Hospital course, mention meds given and route, prescriptions, significant lab abnormalities, going to OR and other pertinent info. @ -59-year-old male presenting with hypoglycemia. Patient is on insulin and the medical record does indicate that the patient is on Ozempic. Patient had an episode of hypoglycemia which was treated with dextrose by paramedics. He is awake and alert at the time my evaluation. Blood sugar monitored in the emergency department and has stabilized. Patient is able to eat and drink in the emergency department without complaint. Stable for discharge at this time. Undiagnosed new problem with uncertain prognosis? @ -No Drug Therapy requiring intensive monitoring for toxicity (Heparin, Nitro, Insulin, Cardizem)? @ -No Were any procedures done? @ -No Diagnosis/symptom? @ -Hypoglycemia Acute, or Chronic, or Acute on Chronic? @ -Acute Uncomplicated (without systemic symptoms) or Complicated (systemic symptoms)? @ -Default Side effects of treatment? @ -No Exacerbation, Progression, or Severe Exacerbation? @ -No Poses a threat to life or bodily function? How? (Chest pain, [place], [place], pneumonia, PE, COPD, DKA, ARF, appy, cholecystitis, CVA, Diverticulitis, Homicidal, Suicidal, threat to staff... and all critical care pts) @Low risk at this time - Lab Data Result diagrams: 02/18/25 12:43 02/18/25 12:43 Lab Results 02/18/25 02/18/25 02/18/25 Range/Units 12:32 12:43 12:43 WBC 8.81 (4.50-10.00) 10*3/uL RBC 4.74 (4.40-5.60) 10*6/uL Hgb 13.0 (13.0-17.0) g/dL Hct 39.6 (39.6-50.0) % MCV 83.5 (80.0-97.0) fL MCH 27.4 (27.0-32.0) pg MCHC 32.8 (32.0-37.0) g/dL Plt Count 225 (140-440) 10*3/uL MPV 11.7 (9.5-12.2) fL Immature Gran % (Auto) 0.5 % Neutrophils % 76.6 % Lymphocytes % 8.6 % Monocytes % 6.9 % Eosinophils % 6.0 % Basophils % 1.4 % Immature Gran # 0.04 (0.00-0.04) 10*3/uL Neutrophils # 6.75 (1.80-7.70) 10*3/uL Lymphocytes # 0.76 L (0.90-5.00) 10*3/uL Monocytes # 0.61 (0.20-1.00) 10*3/uL Eosinophils # 0.53 H (0.04-0.35) 10*3/uL Basophils # 0.12 H (0.00-0.10) 10*3/uL Sodium 137 (137-145) mmol/L Potassium 5.0 (3.5-5.1) mmol/L Chloride 100 (98-107) mmol/L Carbon Dioxide 28 (22-30) mmol/L Anion Gap 9 mmol/L BUN 27 H (9-20) mg/dL Creatinine 1.65 H (0.66-1.25) mg/dL Est GFR (CKD-EPI)AfAm 52 (>60 ml/min/1.73 sqM) Est GFR (CKD-EPI)NonAf 45 (>60 ml/min/1.73 sqM) Glucose 135 H (74-99) mg/dL POC Glucose (mg/dL) 143 H (70-110) mg/dL POC Glu Voice Engineer ID Josué Playcie Calcium 9.3 (8.4-10.2) mg/dL Total Bilirubin 0.5 (0.2-1.3) mg/dL AST 35 (17-59) U/L ALT 42 (4-49) U/L Alkaline Phosphatase 93 (38-126) U/L Total Protein 7.3 (6.3-8.2) g/dL Albumin 4.3 (3.5-5.0) g/dL Disposition Clinical Impression: Hypoglycemia Disposition: HOME SELF-CARE Condition: Fair Instructions (If sedation given, give patient instructions): Hypoglycemia in a Person with Diabetes (ED) Additional Instructions: Please monitor blood glucose closely. Please eat regular meals. Is patient prescribed a controlled substance at d/c from ED?: No Referrals: Mele Navarro MD [Primary Care Provider] - 1-2 days Time of Disposition: 13:50
[2025-02-18 13:02] LABS: Basophils # (A) 0.12 10*3/uL (0.00-0.10); Basophils % (A) 1.4 %; Eosinophils # (A) 0.53 10*3/uL (0.04-0.35); HCT 39.6 % (39.6-50.0); Lymphocytes # (A) 0.76 10*3/uL (0.90-5.00); Lymphocytes % (A) 8.6 %; MCH 27.4 pg (27.0-32.0); MCHC 32.8 g/dL (32.0-37.0); MCV 83.5 fL (80.0-97.0); Mean Platelet Volume 11.7 fL (9.5-12.2); Monocytes # (A) 0.61 10*3/uL (0.20-1.00); Monocytes % (A) 6.9 %; Neutrophils # (A) 6.75 10*3/uL (1.80-7.70); Neutrophils % (A) 76.6 %; Platelet Count 225 10*3/uL (140-440); RBC 4.74 10*6/uL (4.40-5.60); RDW 13.5 % (11.5-14.5); WBC 8.81 10*3/uL (4.50-10.00)
[2025-02-18 13:19] LABS: ALT 42 U/L (4-49); African American GFR (CKD) 52 (>60 ml/min/1.73 sqM); Albumin 4.3 g/dL (3.5-5.0); Anion Gap 9 mmol/L; Blood Urea Nitrogen 27 mg/dL (9-20); Calcium 9.3 mg/dL (8.4-10.2); Carbon Dioxide 28 mmol/L (22-30); Chloride 100 mmol/L (98-107); Glucose 135 mg/dL (74-99); Non-African American GFR(CKD) 45 (>60 ml/min/1.73 sqM); Sodium 137 mmol/L (137-145); Total Bilirubin 0.5 mg/dL (0.2-1.3); Total Protein 7.3 g/dL (6.3-8.2)
[2025-02-18 13:21] LABS: AST 35 U/L (17-59); Alkaline Phosphatase 93 U/L (38-126)
[2025-02-18 13:42] LABS: Glucose,Whole Blood 228 mg/dL (70-110)
== END 2025-02-18 14:39 | disposition home or self-care (01) ==
LOC: EC 12:24
DX: E11.649 Type 2 diabetes mellitus with hypoglycemia without coma (principal); E11.22 Type 2 diabetes mellitus with diabetic chronic kidney disease; I12.9 Hypertensive chronic kidney disease with stage 1 through stage 4 chronic kidney disease, or unspecified chronic kidney disease; N18.9 Chronic kidney disease, unspecified; Z79.4 Long term (current) use of insulin; Z79.84 Long term (current) use of oral hypoglycemic drugs; Z79.899 Other long term (current) drug therapy; Z87.891 Personal history of nicotine dependence
CPT/HCPCS: 36415; 80053; 85025; 99285